=== PATIENT | male | born 1955 ===

== ENCOUNTER → 2022-12-06 | Outpatient (CLI) | payer OTHER | END | disposition home or self-care (01) | LOC: D 09:24 | PROVIDERS: ATTEND Family Medicine | DX: E66.9 Obesity, unspecified (principal); E78.1 Pure hyperglyceridemia; L40.9 Psoriasis, unspecified; Z86.718 Personal history of other venous thrombosis and embolism; Z79.899 Other long term (current) drug therapy; Z68.30 Body mass index [BMI] 30.0-30.9, adult ==